=== PATIENT | female | born 1990 | race Caucasian/White ===

== ENCOUNTER 2020-06-28 21:17 | Emergency (ER) | payer MEDICAID ==
[~2020-06-28] VITALS: Ht 160 cm; Wt 77.2 kg
--- NOTE | 2020-06-28 23:39 | NUR ---
CC OF BLOODY DIARRHEA X 1 TODAY WITH HX OF HEMMORHOIDS. PT VERY ANXIOUS IN ROOM, ASKING ABOUT TAKING IRON FOR ANEMIA AFTER TODAYS POSSIBLE BLOOD DRAW AND FROM HAVING LAB WORK DONE 2 DAYS AGO FROM A DUI ARREST. PT ALSO STATING SHE THINKS SHE MIGHT HAVE A TAMPON STUCK IN HER VAGINA AFTER HAVING THE VAGINAL US DONE. PT STATES SHE HAS NOT CHECKED HERSELF. PT REQUESTING SOMEONE HOLD HER HAND IF BLOOD WORK NEEDS TO BE DONE. PT GIVEN WARM BLANKETS.
[2020-06-29] MEDS ORDERED: LORazepam 1MG TABLET PO ONE
--- NOTE | 2020-06-29 00:06 | NUR ---
BREAK RN: PT UA SENT TO LAB, PT RESTING ON [facility]. NAD, DENIES ADDITIONAL NEEDS AT THIS TIME. BED IN LOWEST, RAILS ENGAGED, CALL LIGHT ON LAP, TM.
[2020-06-29 00:28] LABS: HCG UR SG 1.029 (1.003-1.030)
[2020-06-29 00:31] LABS: MICROSCOPIC INDICATED
[2020-06-29 00:33] LABS: BASOPHILS % (AUTO) 1 % (0-1); EOSINOPHILS % (AUTO) 3 % (1-7); LYMPHOCYTES % (AUTO) 42 % (22-44); MEAN CORPUSCULAR HEMOGLOBIN 31.3 pg (27.0-34.8); MEAN CORPUSCULAR HGB CONC 34.5 g/dL (32.4-35.8); MEAN PLATELET VOLUME 8.6 fL (7.4-10.4); MONOCYTES % (AUTO) 8 % (2-9); NEUTROPHILS % (AUTO) 47 % (42-75); PLATELET COUNT 276 x10^3/uL (130-400); RED BLOOD COUNT 4.92 x10^6/uL (3.82-5.3); RED CELL DISTRIBUTION WIDTH 12.1 % (9.6-15.2)
[2020-06-29 00:36] LABS: MD NO
--- NOTE | 2020-06-29 01:09 | NUR ---
PT RESTING IN [facility], NO NEEDS AT THIS TIME
[2020-06-29 01:10] LABS: ALBUMIN 4.2 g/dL (3.4-5.0); ANION GAP 9 mmol/L (5-15); CALCIUM 9.1 mg/dL (8.5-10.1); CHLORIDE 105 mmol/L (98-107); CREATININE 0.84 mg/dL (0.55-1.02)
[2020-06-29 01:30] VITALS: BP 109/68
== END 2020-06-29 02:03 | disposition home or self-care (01) ==
LOC: ED 06-29 00:40
DX: T19.2XXA Foreign body in vulva and vagina, initial encounter (principal); R19.7 Diarrhea, unspecified; R10.2 Pelvic and perineal pain; K62.5 Hemorrhage of anus and rectum; K64.4 Residual hemorrhoidal skin tags; J45.909 Unspecified asthma, uncomplicated; F17.200 Nicotine dependence, unspecified, uncomplicated; X58.XXXA Exposure to other specified factors, initial encounter; Y93.89 Activity, other specified; Y92.89 Other specified places as the place of occurrence of the external cause; Y99.8 Other external cause status
CPT/HCPCS: 36415; 57415; 76830; 80048; 81001; 81025; 82040; 85025; 99285